=== PATIENT | male | born 1980 | race Caucasian/White ===

== ENCOUNTER 2017-07-25 22:00 | Emergency (ER) | payer SELFPAY ==
[2017-07-25 22:04] VITALS: BP 159/90; PULSE 57; TEMP 98.1; BMI 24.3
--- NOTE | 2017-07-26 00:17 | PDOC ---
History of Present Illness - General Chief Complaint: Pain Stated Complaint: PAIN Time Seen by Provider: 07/26/17 00:17 History Source: Patient - History of Present Illness Initial Comments: 07/26/17 01:25 37 year old male with intermittent LLQ abdominal pain worse after eating x 2 days. patient reports that the pain is worse today. + BM yesterday. denies Fever Past History - Past Medical History Allergies/Adverse Reactions: Allergies Allergy/AdvReac Type Severity Reaction Status Date / Time No Known Allergies Allergy Verified 07/25/17 22:04 Home Medications: Ambulatory Orders Mag Hydrox/Al Hydrox/Simeth [Mylanta Suspension -] 30 ml PO Q6H #1 bottle - Suicide/Smoking/Psychosocial Hx Smoking History: Never smoked Information on smoking cessation initiated: No Hx Alcohol Use: No Drug/Substance Use Hx: No Review of Systems - Review of Systems Able to Perform ROS?: Yes Is the patient limited [place]ian proficient: No Constitutional: No: Symptoms Reported, See HPI, Chills, Diaphoresis, Fever, Loss of Appetite, Malaise, Night Sweats, Weakness, Weight Stable, Unintentional Wgt. Loss, Unexplained wgt Loss, Other ABD/GI: Yes: Abdominal cramping. No: Symptoms Reported, See HPI, Abdominal Distended, Abd. Pain w/ defecation, Blood Streaked Bowels, Constipated, Diarrhea , Difficulty Swallowing, Nausea, Poor Appetite, Poor Fluid Intake, Rectal Bleeding, Vomiting, Indigestion, Tarry Stools, Other : No: Symptoms Reported, See HPI, Burning, Dysuria, Discharge, Frequency, Flank Pain, Hematuria, Incontinence, Pain, Urgency, Testicular Mass, Testicular Swelling, Lesions, Testicular Pain, Other Musculoskeletal: No: Symptoms Reported, See HPI, Back Pain, Gout, Joint Pain, Joint Swelling, Muscle Pain, Muscle Weakness, Neck Pain, Joint Stiffness, Other *Physical Exam - Vital Signs Last Vital Signs Temp Pulse Resp BP Pulse Ox 98.1 F 57 L 20 159/90 100 07/25/17 22:02 07/25/17 22:02 07/25/17 22:02 07/25/17 22:02 07/25/17 22:02 - Physical Exam General Appearance: Yes: Appropriately Dressed Respiratory/Chest: positive: Lungs Clear, Normal Breath Sounds Gastrointestinal/Abdominal: positive: Normal Bowel Sounds, Soft. negative: Tender (patient is not tender on plapation) Male Genitalia: positive: normal genitalia. negative: testicular tenderness, testicular mass, inguinal hernia Extremity: positive: Normal Capillary Refill, Normal Inspection, Normal Range of Motion ED Treatment Course - RADIOLOGY Radiograph Interpretation: 07/26/17 04:04 Abdominal xray: nonobstructive bowel patterns. *DC/Admit/Observation/Transfer Diagnosis at time of Disposition: Abdominal pain Qualifiers: Abdominal location: generalized Qualified Code(s): R10.84 - Generalized abdominal pain - Discharge Dispostion Disposition: HOME - Prescriptions Prescriptions: Mag Hydrox/Al Hydrox/Simeth [Mylanta Suspension -] 30 ml PO Q6H #1 bottle Mag Hydrox/Al Hydrox/Simeth [Mylanta Suspension -] 30 ml PO Q6H #1 bottle - Referrals Referrals: Arnoldo Aguirre MD [Staff Physician] - - Patient Instructions Printed Discharge Instructions: Intestinal Gas (Alternative Therapy) Additional Instructions: drink plenty of fluids ea high fiber bland diet. follow up with your doctor as soon as possible. - Post Discharge Activity Forms/Work/School Notes: Back to Work
[2017-07-26 00:41] LABS: URINE APPEARANCE SLCLOUDY; URINE BILIRUBIN NEGATIVE (<2.0 mg/dL); URINE COLOR YELLOW; URINE GLUCOSE (UA) NEGATIVE (NEGATIVE); URINE KETONE NEGATIVE (NEGATIVE); URINE LEUK ESTERASE NEGATIVE (NEGATIVE); URINE NITRITE NEGATIVE (NEGATIVE); URINE UROBILINOGEN NEGATIVE mg/dL (0.2-1.0)
[2017-07-26 00:51] LABS: URINE PROTEIN 2+ (NEGATIVE)
[2017-07-26 01:02] LABS: URINE MUCUS FEW
[2017-07-26] MEDS ORDERED: MAG HYDROX/AL HYDROX/SIMETH 30 ML UNIT-DOSE CUP PO ONE (01:30)
[2017-07-26] MEDS ORDERED: MAG HYDROX/AL HYDROX/SIMETH 30 ML UNIT-DOSE CUP ONE (01:50)
== END 2017-07-26 04:11 | disposition home or self-care (01) ==
LOC: JER 22:00
DX: R10.30 Lower abdominal pain, unspecified (principal)
CPT/HCPCS: 74018-TC-FY; 81003; 81015; 99281-25

== ENCOUNTER 2022-04-11 09:44 | Emergency (ER) | payer SELFPAY ==
[2022-04-11 09:58] VITALS: BP 145/85; PULSE 68; RESP 17; TEMP 97.7; BMI 23.8
== END 2022-04-11 10:57 | disposition home or self-care (01) ==
LOC: JERFT 09:44
DX: B02.9 Zoster without complications (principal)
CPT/HCPCS: 99283-25